=== PATIENT | female | born 1945 | race Caucasian/White ===

== ENCOUNTER 2021-12-13 15:13 | Inpatient (IN) | payer MEDICARE, OTHER ==
[~2021-12-13] VITALS: Ht 170.2 cm; Wt 73.5 kg
--- NOTE | 2021-12-13 15:15 | NUR ---
Patient received noted with bruising around the left eye. Denies discomfort. noted with confusion. Frequent visual checks done. Addendum: 12/13/21 at 1915 by SABINA Bruising noted to the right eye not left eye. will endorse.
--- NOTE | 2021-12-13 15:18 | NUR ---
Patient seen by ER MND, all orders carried out.
[2021-12-13] MEDS ORDERED: IV NORMAL SALINE 500 ML BAG IV ONE (15:30)
[2021-12-13 15:40] LABS: HEMATOCRIT 41.1 % (31.2-41.9); MEAN CORPUSCULAR HEMOGLOBIN 32.8 uug (24.7-32.8); MEAN CORPUSCULAR VOLUME 97.8 fL (75.5-95.3); PLATELET COUNT (AUTO) 148 K/uL (179-408)
[2021-12-13 15:52] LABS: CARBON DIOXIDE 30 mmol/L (21-32); CHLORIDE 103 mmol/L (98-107); CREATININE 0.8 mg/dL (0.6-1.3); GLUCOSE 104 mg/dL (74-106); POTASSIUM 4.2 mmol/L (3.5-5.1); UREA NITROGEN, BLOOD 26 mg/dL (7-18)
--- NOTE | 2021-12-13 18:54 | NUR ---
No distress identified during the shift. Patient noted with confusion. high risk for fall. will endorse to the next shift for continuity of care.
--- NOTE | 2021-12-13 19:29 | NUR ---
pt is admitted to the hospital. I called upstairs and spoke to the sanitation technician he states there is no charge nurse and they will call back with where the pt will go.
--- NOTE | 2021-12-13 19:46 | NUR ---
received a call from upstairs third floor pt will go to room 308
[2021-12-13] MEDS ORDERED: MAGNESIUM HYDROXIDE 30 ML LIQUID UDC PO PRN (20:15)
[2021-12-13] MEDS ORDERED: REMEDY ESSENTIAL ZINC PASTE 113 GM TP PRN (20:15)
[2021-12-13] MEDS ORDERED: ONDANSETRON 4 MG/2 ML VIAL IV PRN (20:15)
[2021-12-13 21:00] VITALS: BP 127/86
--- NOTE | 2021-12-13 21:15 | NUR ---
report given to Nishi MOSLEY pt to go to room 308
--- NOTE | 2021-12-13 21:16 | NUR ---
Report received from Jassi MOSLEY
--- NOTE | 2021-12-13 21:47 | NUR ---
pt was transferred to room 308 with all belongings via [facility]. DIMITRI Almodovar at bedside to receive the pt.
[2021-12-13] MEDS: IV NS 1000 ML 1,000 ML IV PRN (21:58)
[2021-12-13] MEDS: HYDROCODONE/APAP 5-325MG TABLET PO PRN (23:27)
[2021-12-14 00:54] VITALS: BP 117/60
[2021-12-14 04:21] VITALS: BP 108/50
--- NOTE | 2021-12-14 05:29 | NUR ---
Pt admitted to Tele, SR on the monitor. IV site intact. Confused, able to make needs known. Bed alarm on. Safety maintained. Will endorse to day shift.
[2021-12-14] MEDS: PANTOPRAZOLE SODIUM 40 MG TABLET.DR PO SCH (06:02)
[2021-12-14 06:53] LABS: HEMATOCRIT 36.8 % (31.2-41.9); MEAN CORPUSCULAR HEMOGLOBIN 33.3 uug (24.7-32.8); MEAN CORPUSCULAR VOLUME 97.2 fL (75.5-95.3); PLATELET COUNT (AUTO) 129 K/uL (179-408)
[2021-12-14 07:00] LABS: NEUTROPHILS % (MANUAL) 0 % (42-75)
[2021-12-14 07:12] LABS: CREATININE 0.7 mg/dL (0.6-1.3); POTASSIUM 3.9 mmol/L (3.5-5.1)
--- NOTE | 2021-12-14 10:53 | NUR ---
Patient's medication list faxed to pharmacy. Will contact Dr. Castro to reconcile medications.
[2021-12-14] MEDS ORDERED: MAGN400O6 PO (10:58)
[2021-12-14] MEDS ORDERED: MULT-594 PO (10:58)
[2021-12-14] MEDS ORDERED: DOCU-141 PO (10:58)
[2021-12-14] MEDS ORDERED: DOXE50CA4 PO (10:58)
[2021-12-14] MEDS ORDERED: CALC-15 PO (10:58)
[2021-12-14] MEDS ORDERED: DIVA125C2 PO (10:58)
[2021-12-14] MEDS ORDERED: OLAN5TAB70 PO (10:58)
[2021-12-14] MEDS ORDERED: OXYB5TAB16 PO (10:58)
[2021-12-14] MEDS ORDERED: LORA10TA7 PO (10:58)
[2021-12-14] MEDS ORDERED: ACET-2154 PO (10:58)
[2021-12-14] MEDS ORDERED: AMIN30LI2 PO (10:58)
[2021-12-14] MEDS ORDERED: FOLI1TAB94 PO (10:58)
[2021-12-14] MEDS ORDERED: MELA3TAB41 PO (10:58)
[2021-12-14] MEDS ORDERED: DULO30CA2 PO (10:58)
[2021-12-14] MEDS ORDERED: AMLO10TA4 PO (10:58)
[2021-12-14] MEDS ORDERED: BISA10SU61 RC (10:59)
[2021-12-14 11:00] VITALS: BP 115/62
[2021-12-14] MEDS ORDERED: BISACODYL 10 MG SUPP.RECT RC PRN (11:15)
[2021-12-14] MEDS: OLANZAPINE 5 MG TABLET PO SCH (11:58)
[2021-12-14] MEDS: DULOXETINE 30 MG CAPSULE.DR PO SCH (11:58)
[2021-12-14] MEDS ORDERED: DIVALPROEX SPRINKLE 125 MG CAP.SPRINK PO SCH ×2 (12:00→21:00)
[2021-12-14] MEDS: IV NS 1000 ML 1,000 ML IV PRN (12:21)
[2021-12-14] MEDS ORDERED: DIVALPROEX SPRINKLE 125 MG CAP.SPRINK PO ONE (12:30)
[2021-12-14 12:54] LABS: THYROID STIMULATING HORMONE 1.738 mIU/mL (0.358-3.740)
[2021-12-14] MEDS: HYDROCODONE/APAP 5-325MG TABLET PO PRN ×2 (14:10→20:47)
[2021-12-14] MEDS ORDERED: HALOPERIDOL LACTATE 5 MG/1 ML VIAL IM ONE (14:30)
--- NOTE | 2021-12-14 15:43 | NUR ---
Patient no longer aggressive or combative after talking and reasoning with patient. Will monitor patient throughout shift.
[2021-12-14 16:00] VITALS: BP 108/53
[2021-12-14] MEDS: DOCUSATE SODIUM 100 MG CAPSULE PO SCH (16:06)
[2021-12-14] MEDS: OXYBUTYNIN CHLORIDE 5 MG TABLET PO SCH (16:06)
--- NOTE | 2021-12-14 18:28 | NUR ---
Patient tolerated care well today despite episodes of combativeness and aggressiveness. Situation eased by speaking with patient through therapeutic communication. Patient able to express frustrations and able to surpass the need to give Haldol to patient. Patient able to make needs known, despite being confused and reminded about why they are admitted in hospital. IV site patent and intact. Bed left in lowest position with call light within reach. Comfort measures provided. Needs attended to. Will endorse information to PM nurse.
--- NOTE | 2021-12-14 19:30 | NUR ---
Received pt in no acute distress. Iv intact. Pt on sinus rhythm. Safety and comfort provided. Will continue to monitor.
[2021-12-14 20:19] VITALS: BP 113/51
[2021-12-14] MEDS: DIVALPROEX SPRINKLE 125 MG CAP.SPRINK PO SCH (20:47)
[2021-12-14] MEDS ORDERED: DOXEPIN 50 MG CAPSULE PO SCH (21:00)
--- NOTE | 2021-12-14 21:55 | NUR ---
at [id number] Celina prn given to pt for facial pain. Pt tolerated it well. After 30 minutes pt stated she felt better. Will continue to monitor.
[2021-12-14] MEDS: ACETAMINOPHEN 325 MG TABLET PO PRN (23:58)
[2021-12-15 00:01] VITALS: BP 116/91
[2021-12-15] MEDS: IV NS 1000 ML 1,000 ML IV PRN (00:42)
[2021-12-15] MEDS: PANTOPRAZOLE SODIUM 40 MG TABLET.DR PO SCH (07:00)
[2021-12-15] MEDS: DULOXETINE 30 MG CAPSULE.DR PO SCH (08:35)
[2021-12-15] MEDS: DIVALPROEX SPRINKLE 125 MG CAP.SPRINK PO SCH ×2 (08:35→16:43)
[2021-12-15] MEDS: AMLODIPINE 10 MG TABLET PO SCH (08:35)
[2021-12-15] MEDS: DOCUSATE SODIUM 100 MG CAPSULE PO SCH ×2 (08:35→16:42)
[2021-12-15] MEDS: CALCIUM CARB/VITAMIN D 500MG-200UNITS TABLET PO SCH (08:36)
[2021-12-15] MEDS: FOLIC ACID 1 MG TABLET PO SCH (08:36)
[2021-12-15] MEDS: OXYBUTYNIN CHLORIDE 5 MG TABLET PO SCH ×2 (08:36→16:42)
[2021-12-15] MEDS: OLANZAPINE 5 MG TABLET PO SCH ×3 (08:39→22:07)
[2021-12-15] MEDS ORDERED: OLANZAPINE 5 MG TABLET PO SCH (09:00)
[2021-12-15] MEDS ORDERED: DULOXETINE 30 MG CAPSULE.DR PO SCH (09:00)
[2021-12-15] MEDS: HYDROCODONE/APAP 5-325MG TABLET PO PRN (09:40)
[2021-12-15 11:47] VITALS: BP 119/62
[2021-12-15 16:58] VITALS: BP 116/52
[2021-12-15 20:00] VITALS: BP 94/56
[2021-12-16] MEDS: ACETAMINOPHEN 325 MG TABLET PO PRN (01:25)
[2021-12-16 04:17] VITALS: BP 133/70
--- NOTE | 2021-12-16 05:19 | NUR ---
Received patient in bed awake, alert to self. In no acute distress, no facial grimace. No episode of combative behavior, still confused but able to make simple needs known to staff. Awake most of the times, fell asleep around 0200. Needs assessed and anticipated. Left bed at lowest position w/ call light within easy reach.
[2021-12-16] MEDS: PANTOPRAZOLE SODIUM 40 MG TABLET.DR PO SCH (07:01)
[2021-12-16] MEDS: DOCUSATE SODIUM 100 MG CAPSULE PO SCH (08:42)
[2021-12-16] MEDS: AMLODIPINE 10 MG TABLET PO SCH (08:42)
[2021-12-16] MEDS: CALCIUM CARB/VITAMIN D 500MG-200UNITS TABLET PO SCH (08:42)
[2021-12-16] MEDS: OXYBUTYNIN CHLORIDE 5 MG TABLET PO SCH (08:42)
[2021-12-16] MEDS: OLANZAPINE 5 MG TABLET PO SCH ×2 (08:42→13:51)
[2021-12-16] MEDS: DIVALPROEX SPRINKLE 125 MG CAP.SPRINK PO SCH (08:43)
[2021-12-16] MEDS: FOLIC ACID 1 MG TABLET PO SCH (08:43)
[2021-12-16] MEDS ORDERED: DULOXETINE 60 MG CAPSULE.DR PO SCH (09:00)
--- NOTE | 2021-12-16 12:00 | NUR ---
PREPARED FOR DISCHARGE. REPORT CALLED TO MARIELA MOSLEY AT [facility]. LARGE BM THIS AM. NURSE AND LOCATE TECHNICIAN ATTEMPTED TO REACH OSMAN HERNANDES {PERSON TO NOTIFY} SEVERAL TIMES WITH NO RESPONSE.
[2021-12-16 12:45] VITALS: BP 112/62
[2021-12-16] MEDS: HYDROCODONE/APAP 5-325MG TABLET PO PRN (13:52)
--- NOTE | 2021-12-16 14:53 | NUR ---
DISCHARGED TO AMBULANCE. DOZING AT INTERVALS. NO DISTRESS NOTED.
== END 2021-12-16 14:55 | DRG 312 ==
LOC: ER 15:13 → TELE3 21:21 → MEDSURG3 12-15 11:47
DX: I95.1 Orthostatic hypotension (principal); F33.1 Major depressive disorder, recurrent, moderate; I10 Essential (primary) hypertension; Z20.822 Contact with and (suspected) exposure to COVID-19; G30.9 Alzheimer's disease, unspecified; F02.80 Dementia in other diseases classified elsewhere, unspecified severity, without behavioral disturbance, psychotic disturbance, mood disturbance, and anxiety; W19.XXXA Unspecified fall, initial encounter; Y93.9 Activity, unspecified; Z91.19 Patient's noncompliance with other medical treatment and regimen; G24.01 Drug induced subacute dyskinesia; S00.83XA Contusion of other part of head, initial encounter; Y92.009 Unspecified place in unspecified non-institutional (private) residence as the place of occurrence of the external cause
CPT/HCPCS: 36415; 70030-TC; 70450; 70486; 72125; 83735; 84100; 84443; 84484; 85025; 93005; 97161; A4663; A6209; G0378; J2405; J7040; J8499